=== PATIENT | female | born 1940 | race Caucasian/White ===

== ENCOUNTER 2017-04-29 18:36 | Emergency (ER) | payer MEDICARE, BC ==
[2017-04-29] MEDS ORDERED: Sodium Chloride 0.9% 10 ML Syringe FLUSH PRN (19:05)
[2017-04-29] MEDS ORDERED: Sodium Chloride 0.9% 1,000 ML IV SCH (19:15)
[2017-04-29 21:05] VITALS: BP 145/64
--- NOTE | 2017-04-29 21:25 | EDM.PDOC ---
ED HPI GENERAL MEDICAL PROBLEM - General Chief Complaint: Neuro Symptoms/Deficits Stated Complaint: ISSUES WALKING & W/SPEECH Time Seen by Provider: 04/29/17 19:04 Source of Information: Reports: Patient, Family History Limitations: Reports: No Limitations - History of Present Illness INITIAL COMMENTS - FREE TEXT/NARRATIVE: This patient was brought in with her family was some neuro complaints possibly a stroke. She said that a few hours ago she suddenly felt dizzy and couldn't walk. She repeated multiple times that she feels really thirsty. She did drink some water prior to coming in. But says she's had some trouble swallowing this because her mouth is so dry. She denies any weakness anywhere. She denies vertigo she denies any near syncope type symptoms. She does complain of just sort of feeling off balance. She said her ears seem like they're kind of plugged that because when she speaks it just sounds body. She denies nausea vomiting or diarrhea doesn't know how she would get dehydrated but she again says that she's just really really thirsty. The family said her speech was slurred earlier but the patient says is just because her mouth is so dry. Family notes that she did not have any weakness anywhere her handgrips were nice and strong area the patient says that overall she actually feels a little bit better now. - Related Data Allergies Allergy/AdvReac Type Severity Reaction Status Date / Time Penicillins Allergy Cannot Verified 04/29/17 18:49 Remember Home Meds: Home Meds Aspirin [Adult Low Dose Aspirin EC] 81 mg PO DAILY 09/21/13 [History] Losartan/Hydrochlorothiazide [Hyzaar 50-12.5 Tablet] 1 each PO DAILY 09/21/13 [ History] Omeprazole [Prilosec] 20 mg PO DAILY 09/21/13 [History] traMADol [Ultram] 50 mg PO Q8H PRN 09/21/13 [History] Donepezil [Aricept] 5 mg PO BEDTIME 03/01/16 [History] Memantine [Namenda] 10 mg PO BID 03/01/16 [History] Nabumetone [Relafen] 750 mg PO DAILY 03/01/16 [History] Past Medical History Cardiovascular History: Reports: Hypertension Gastrointestinal History: Reports: GERD 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 OB/BYN History: HYSTERECTOMY Neurological History: Reports: Alzheimers Disease - Past Surgical History Other Musculoskeletal Surgeries/Procedures:: R KNEE REPLACEMENT, CHRONIC BACK PAIN Social & Family History - Tobacco Use Smoking Status *Q: Unknown Ever Smoked - Alcohol Use Days Per Week of Alcohol Use: 7 Number of Drinks Per Day: 1 Total Drinks Per Week: 7 - Recreational Drug Use Recreational Drug Use: No ED ROS GENERAL - Review of Systems Review Of Systems: See Below Constitutional: Denies: Fever, Chills, Weakness HEENT: Reports: Other (Dry mouth, ears seems stopped up) Respiratory: Reports: No Symptoms Cardiovascular: Reports: No Symptoms Endocrine: Reports: No Symptoms GI/Abdominal: Reports: No Symptoms : Reports: No Symptoms Musculoskeletal: Reports: No Symptoms Skin: Reports: Other (Family felt like she was a little pale) Neurological: Reports: Other (Some disequilibrium difficulty walking due to feeling off balance) Psychiatric: Reports: No Symptoms Hematologic/Lymphatic: Reports: No Symptoms ( but no actual weakness some speech changes which patient says his Cozaar mouth was so dry) Immunologic: Reports: No Symptoms ED EXAM, NEURO - Physical Exam Exam: See Below Exam Limited By: No Limitations General Appearance: Alert, No Apparent Distress, Thin Eye Exam: Bilateral Eye: EOMI, PERRL Ears: Other Nose: Normal Inspection (Both TMs are bulging slightly) Throat/Mouth: Other (Mouth slightly dry) Head Exam: Atraumatic Neck: Normal Inspection. No: Carotid Bruit Respiratory/Chest: Lungs Clear Cardiovascular: Regular Rate, Rhythm, No Murmur GI/Abdominal: Soft, Non-Tender Neurological: Alert, Normal Mood/Affect, Normal Dorsiflexion, CN II-XII Intact, Normal Plantar Flexion, Normal Reflexes, No Motor/Sensory Deficits, Oriented x 3 , Other (Balance is excellent no evidence of a Romberg sign) Back Exam: Normal Inspection, Paraspinal Tenderness Psychiatric: Normal Affect Skin Exam: Warm, Dry, Intact Course - Vital Signs Last Recorded V/S: Last Vital Signs Temp 35.3 C 04/29/17 18:51 Pulse 87 04/29/17 21:04 Resp 12 04/29/17 21:04 BP 145/64 H 04/29/17 21:04 Pulse Ox 94 L 04/29/17 21:04 - Orders/Labs/Meds Orders: Active Orders 24 hr Category Date Time Status EKG Documentation Completion [RC] ASDIRECTED Care 04/29/17 19:06 Active Head wo Cont [CT] Stat Exams 04/29/17 19:06 Taken Sodium Chloride 0.9% [Normal Saline] 1,000 ml Med 04/29/17 19:15 Active IV ASDIRECTED Sodium Chloride 0.9% [Saline Flush] Med 04/29/17 19:05 Active 10 ml FLUSH ASDIRECTED PRN Saline Lock Insert [OM.PC] Urgent Oth 04/29/17 19:05 Ordered EKG 12 Lead [EK] Urgent Ther 04/29/17 19:05 Ordered Medication Orders Sodium Chloride (Normal Saline) 1,000 mls @ 999 mls/hr IV ASDIRECTED TOM Last Admin: 04/29/17 19:32 Dose: 999 mls/hr Sodium Chloride (Saline Flush) 10 ml FLUSH ASDIRECTED PRN PRN Reason: Keep Vein Open Last Admin: 04/29/17 19:32 Dose: 10 ml Labs: Laboratory Tests 04/29/17 04/29/17 04/29/17 Range/Units 19:22 19:22 19:46 WBC 6.1 (4.5-11.0) K/uL RBC 4.17 (3.30-5.50) M/uL Hgb 11.5 L (12.0-15.0) g/dL Hct 34.8 L (36.0-48.0) % MCV 84 (80-98) fL MCH 28 (27-31) pg MCHC 33 (32-36) % Plt Count 186 (150-400) K/uL Neut % (Auto) 62 (36-66) % Lymph % (Auto) 23 L (24-44) % [place] % (Auto) 12 H (2-6) % Eos % (Auto) 3 (2-4) % Baso % (Auto) 0 (0-1) % Sodium 135 L (140-148) mmol/L Potassium 3.5 L (3.6-5.2) mmol/L Chloride 95 L (100-108) mmol/L Carbon Dioxide 26 (21-32) mmol/L Anion Gap 17.5 H (5.0-14.0) mmol/L BUN 37 H (7-18) mg/dL Creatinine 1.3 H (0.6-1.0) mg/dL Est Cr Clr Drug Dosing 28.21 mL/min Estimated GFR (MDRD) 40 L (>60) Glucose 97 (74-106) mg/dL Calcium 9.1 (8.5-10.1) mg/dL Total Bilirubin 0.4 (0.2-1.0) mg/dL AST 19 (15-37) U/L ALT 19 (12-78) U/L Alkaline Phosphatase 60 (46-116) U/L Total Protein 6.8 (6.4-8.2) g/dL Albumin 3.6 (3.4-5.0) g/dL Globulin 3.2 (2.3-3.5) g/dL Albumin/Globulin Ratio 1.1 L (1.2-2.2) Urine Color Yellow Urine Appearance Clear Urine pH 5.0 (4.5-8.0) Ur Specific [place] 1.020 (1.008-1.030) Urine Protein Negative (NEGATIVE) mg/dL Urine Glucose (UA) Normal (NEGATIVE) mg/dL Urine Ketones Negative (NEGATIVE) mg/dL Urine Occult Blood Negative (NEGATIVE) Urine Nitrite Negative (NEGATIVE) Urine Bilirubin Negative (NEGATIVE) Urine Urobilinogen Normal (NORMAL) mg/dL Ur Leukocyte Esterase Negative (NEGATIVE) Urine RBC 0-5 (0-5) Urine WBC 0-5 (0-5) Ur Epithelial Cells Rare Amorphous Sediment Not seen Urine Bacteria Rare Urine Mucus Not seen Meds: Medications Generic Name Dose Route Start Last Admin Trade Name Freq PRN Reason Stop Dose Admin Sodium Chloride 1,000 mls @ 999 mls/hr 04/29/17 19:15 04/29/17 19:32 Normal Saline IV 999 mls/hr ASDIRECTED TOM Administration Sodium Chloride 10 ml 04/29/17 19:05 04/29/17 19:32 Saline Flush FLUSH 10 ml ASDIRECTED PRN Administration Keep Vein Open - Radiology Interpretation Free Text/Narrative:: Head CT is normal - Re-Assessments/Exams Free Text/Narrative Re-Assessment/Exam: 04/29/17 21:25 Patient was hydrated with 1 L of IV normal saline. She was reexamined afterwards that's when I got her out of bed stood her up and check her balance which was excellent. Departure - Departure Time of Disposition: 21:26 Disposition: Home, Self-Care 01 Condition: Fair Clinical Impression: Disequilibrium, Dehydration - Discharge Information Referrals: Stef Zavala MD [Primary Care Provider] - Additional Instructions: Be sure to drink extra liquids for the next 2 or 3 days. If your symptoms persist then either return to the ER or follow up with your doctor. If at any time you begin to feel dizzy or feel like he might pass out then you should immediately lean over at the waist or just sit down on the floor. - My Orders Last 24 Hours: My Active Orders 04/29/17 19:05 Sodium Chloride 0.9% [Saline Flush] 10 ml FLUSH ASDIRECTED PRN Saline Lock Insert [OM.PC] Urgent EKG 12 Lead [EK] Urgent 04/29/17 19:06 EKG Documentation Completion [RC] ASDIRECTED Head wo Cont [CT] Stat 04/29/17 19:15 Sodium Chloride 0.9% [Normal Saline] 1,000 ml IV ASDIRECTED - Assessment/Plan Last 24 Hours: My Active Orders 04/29/17 19:05 Sodium Chloride 0.9% [Saline Flush] 10 ml FLUSH ASDIRECTED PRN Saline Lock Insert [OM.PC] Urgent EKG 12 Lead [EK] Urgent 04/29/17 19:06 EKG Documentation Completion [RC] ASDIRECTED Head wo Cont [CT] Stat 04/29/17 19:15 Sodium Chloride 0.9% [Normal Saline] 1,000 ml IV ASDIRECTED
== END 2017-04-29 21:38 | disposition home or self-care (01) ==
LOC: JP.ED 18:36
DX: E87.8 Other disorders of electrolyte and fluid balance, not elsewhere classified (principal); E86.0 Dehydration; I10 Essential (primary) hypertension; K21.9 Gastro-esophageal reflux disease without esophagitis; Z88.0 Allergy status to penicillin; Z79.899 Other long term (current) drug therapy; Z79.82 Long term (current) use of aspirin
CPT/HCPCS: 36415; 70450; 80053; 81001; 85025; 93005; 96360; 99285; J7040; J7050; 93010; 99284